=== PATIENT | male | born 1980 | race Caucasian/White ===

== ENCOUNTER 2016-12-03 04:11 | Emergency (ER) | payer OTHER, SELFPAY ==
[2016-12-03] MEDS ORDERED: Fentanyl 100 MCG/2 ML VIAL ONE (04:30)
[2016-12-03] MEDS ORDERED: Clindamycin 150 MG CAP ONE (04:30)
== END 2016-12-03 04:52 | disposition home or self-care (01) ==
LOC: NAV ERS 04:11
DX: K02.9 Dental caries, unspecified (principal); F17.210 Nicotine dependence, cigarettes, uncomplicated
CPT/HCPCS: 96372; J3010

== ENCOUNTER 2023-11-05 21:21 | Emergency (ER) | payer BC, SELFPAY ==
[2023-11-05] MEDS ORDERED: Sodium Chloride 0.9% 1,000 ML ONE (21:51)
[2023-11-05 21:52] LABS: #Basophils 0.1 thou/uL (0.0-0.2); #Eosinphils 0.2 thou/uL (0.0-0.7); #Lymphocytes 2.7 thou/uL (1.20-3.40); #Monocytes 0.7 thou/uL (0.11-0.59); #Neutrophils 6.4 thou/uL (1.40-6.50); %Basophils 0.9 % (0.0-1.0); %Eosinophils 2.2 % (0.0-10.0); %Lymphocytes 26.6 % (21.0-51.0); %Monocytes 7.2 % (0.0-10.0); %Neutrophils 63.1 % (42.0-75.0); Hematocrit 47.3 % (42.0-52.0); Hemoglobin 16.1 g/dL (14.0-18.0); Mean Corpuscular Hemoglobin 30.8 pg (27.0-31.0); Mean Corpuscular Volume 90.8 fl (78.0-98.0); Mean Platelet Volume 6.9 fL (7.4-10.4); Platelet Count 256 10x3/uL (130-400); Red Blood Cell (RBC) Count 5.21 mill/uL (4.70-6.10); White Blood Cell (WBC) Count 10.2 10x3/uL (4.8-10.8)
[2023-11-05 22:10] LABS: Bilirubin Negative (Negative); Blood, Urine Negative (Negative); Clarity Clear (Clear); Glucose, Urine (Dipstick) Negative (Negative); Ketone, Urine Negative (Negative); Leukocyte Negative (Negative); Nitrite Negative (Negative); Protein, Urine (Dipstick) Negative (Neg-Trace); Urobilinogen 0.2 mg/dL (Less than 2); pH, Urine 5.5 (5.0-9.0)
[2023-11-05 22:10] LABS: ALT (SGPT) 26 U/L (8-55); AST (SGOT) 18 U/L (5-34); Acetaminophen Less than 10 mcg/mL (Less than 10); Albumin 3.6 g/dL (3.5-5.0); Alcohol 24.2 mg/dL (Less than 10); Alkaline Phosphatase 78 U/L (40-110); Anion Gap 16 mmol/L (10-20); BUN (Urea Nitrogen) 14 mg/dL (8.9-20.6); Bilirubin, Total 0.3 mg/dL (0.2-1.2); Calc. Creatinine Clearance 0 mL/min (70-130); Calcium 9.1 mg/dL (7.8-10.44); Carbon Dioxide 19 mmol/L (22-29); Chloride 105 mmol/L (98-107); Estimated GFR 84; Globulin 3.2 g/dL (2.4-3.5); Glucose 99 mg/dL (70-105); Potassium 3.8 mmol/L (3.5-5.1); Protein, Total 6.8 g/dL (6.0-8.3); Salicylate Less than 8.0 mg/dL (Less than 8.0); Sodium 136 mmol/L (136-145)
[2023-11-05 22:11] LABS: Troponin I Less than 0.010 ng/mL (< 0.028)
[2023-11-05 22:13] LABS: Bacteria/HPF Rare-Few HPF (None Seen); CAUTI Indications for Culture Alt mental st,lethar; RBC/HPF None Seen HPF (0-3); Specific Gravity, Urine 1.006 (1.002-1.036); WBC/HPF 0-3 HPF (0-3)
[2023-11-05 22:14] LABS: Urine Culture Reflex No No
== END 2023-11-05 23:25 | disposition home or self-care (01) ==
LOC: NAV ERS 21:21
DX: R55 Syncope and collapse (principal); S00.83XA Contusion of other part of head, initial encounter; I10 Essential (primary) hypertension; F17.210 Nicotine dependence, cigarettes, uncomplicated; Z79.899 Other long term (current) drug therapy; W18.30XA Fall on same level, unspecified, initial encounter
CPT/HCPCS: 70450; 70486; 80053; 80307; 81001; 84484; 85025; 93005; 96360; J7030

== ENCOUNTER 2024-03-18 06:33 | Emergency (ER) | payer BC ==
[2024-03-18] MEDS ORDERED: Azithromycin 250 MG TAB ONE (08:15)
[2024-03-18] MEDS ORDERED: predniSONE 20 MG TAB ONE (08:15)
[2024-03-18] MEDS ORDERED: Albuterol 200 PUFF (6.7GM INHALER) ONE (08:16)
== END 2024-03-18 08:28 | disposition home or self-care (01) ==
LOC: NAV ERS 06:33
DX: J18.9 Pneumonia, unspecified organism (principal); J45.991 Cough variant asthma; I10 Essential (primary) hypertension; F17.210 Nicotine dependence, cigarettes, uncomplicated; Z79.899 Other long term (current) drug therapy
CPT/HCPCS: 71046; 87428; J7512